=== PATIENT | male | born 1955 | race Caucasian/White ===

== ENCOUNTER → 2018-06-15 | Outpatient (CLI) | payer BC | LOC: M LRY 12:19 | DX: M19.041 Primary osteoarthritis, right hand (principal); M19.042 Primary osteoarthritis, left hand; L40.50 Arthropathic psoriasis, unspecified | CPT/HCPCS: 73130 ==

== ENCOUNTER 2018-08-05 06:40 | Outpatient (CLI) | payer BC ==
[~2018-08-05] VITALS: Ht 172.7 cm; Wt 98.2 kg
[2018-08-05 06:50] VITALS: BP 143/65
[2018-08-05] MEDS ORDERED: diphenhydrAMINE 25MG PO PRIOR TO INFUSION PO ONE (08:00)
[2018-08-05] MEDS ORDERED: inFLIXimab INJECTION 500 MG in NS 200 ML IV ONE (08:00)
[2018-08-05] MEDS ORDERED: NS 1,000 ML IV SCH (08:00)
[2018-08-05] MEDS ORDERED: ACETAMINOPHEN 650MG PO PRIOR TO INFUSION PO ONE (08:00)
[2018-08-05] MEDS ORDERED: FILTER 1.2 MICRON (ADULT TPN/MANNITOL/REMICADE) XX ONE (08:00)
[2018-08-05 08:15] VITALS: BP 110/57
[2018-08-05 08:45] VITALS: BP 117/59
[2018-08-05 09:06] VITALS: BP 104/58
[2018-08-05 09:30] VITALS: BP 116/56
== END 2018-08-05 09:30 | disposition home or self-care (01) ==
LOC: M INFU 06:40
PROVIDERS: ATTEND Internal Medicine Rheumatology
DX: L40.50 Arthropathic psoriasis, unspecified (principal)
CPT/HCPCS: 96413; J1745

== ENCOUNTER → 2018-08-17 | Outpatient (CLI) | payer BC ==
[2018-08-17 18:23] LABS: BASO # 0.1 10^3/uL (0.0-0.2); EOS # 0.3 10^3/uL (0.0-0.50); EOS % 3.6 % (0.0-3.0); HEMATOCRIT 36.9 % (42.0-52.0); LYMPH # 1.3 10^3/uL (1.5-4.5); LYMPH % 17.4 % (24.0-44.0); MEAN CORPUSCULAR HEMOGLOBIN 32.3 pg (27.0-33.0); MEAN CORPUSCULAR HGB CONC 32.5 g/dl (32.0-36.5); MEAN CORPUSCULAR VOLUME 99.5 fl (80.0-96.0); MONO # 0.6 10^3/uL (0.0-0.8); MONO % 8.3 % (0.0-5.0); NEUTROPHILS % 69.1 % (36.0-66.0); PLATELET COUNT, AUTOMATED 245 10^3/uL (150-450); RED BLOOD COUNT 3.71 10^6/uL (4.30-6.10); WHITE BLOOD COUNT 7.2 10^3/uL (4.0-10.0)
[2018-08-17 18:48] LABS: ALBUMIN 4.3 GM/DL (3.2-5.2); ALT/SGPT 32 U/L (12-78); BILIRUBIN,TOTAL 0.4 MG/DL (0.2-1.0); BLOOD UREA NITROGEN 16 MG/DL (7-18); C REACTIVE PROTEIN QUANTITATIV < 0.30 MG/DL (0.00-0.30); CALCIUM LEVEL 9.1 MG/DL (8.8-10.2); CARBON DIOXIDE LEVEL 28 MEQ/L (21-32); CHLORIDE LEVEL 101 MEQ/L (98-107); CREATININE FOR GFR 0.99 MG/DL (0.70-1.30); GLOMERULAR FILTRATION RATE > 60.0 (>49); GLUCOSE, FASTING 163 MG/DL (70-100); POTASSIUM SERUM 4.2 MEQ/L (3.5-5.1); RHEUMATOID FACTOR QUANT < 10.0 IU/ML (<15.0); SODIUM LEVEL 139 MEQ/L (136-145); TOTAL PROTEIN 8.7 GM/DL (6.4-8.2); URIC ACID 3.4 MG/DL (3.5-7.2)
[2018-08-17 19:30] LABS: ERYTHROCYTE SEDIMENTATION RATE 18 mm/hr (0-20)
[2018-08-19 11:02] LABS: HEPATITIS B SURFACE ANTIBODY NEGATIVE (POSITIVE)
[2018-08-19 11:08] LABS: HEPATITIS B SURFACE ANTIGEN NEGATIVE (NEGATIVE)
[2018-08-19 11:37] LABS: HEPATITIS C VIRUS ABY INDEX 0.1 INDEX (<0.8)
[2018-08-20 00:10] LABS: CYCLIC CITRULLINATED PEPTIDE 10 units (0-19); HEPATITIS B CORE ANTIBODY IGG Negative (Negative)
== END ==
LOC: M LAB 16:34
PROVIDERS: ATTEND Internal Medicine Rheumatology
DX: Z51.81 Encounter for therapeutic drug level monitoring (principal); L40.50 Arthropathic psoriasis, unspecified; Z79.899 Other long term (current) drug therapy

== ENCOUNTER 2018-09-30 06:53 | Outpatient (CLI) | payer BC ==
[~2018-09-30] VITALS: Ht 172.7 cm; Wt 98.0 kg
[2018-09-30 07:14] VITALS: BP 142/69
[2018-09-30] MEDS ORDERED: FILTER 1.2 MICRON (ADULT TPN/MANNITOL/REMICADE) XX ONE (07:15)
[2018-09-30] MEDS ORDERED: diphenhydrAMINE 25MG PO PRIOR TO INFUSION PO ONE (07:15)
[2018-09-30] MEDS ORDERED: ACETAMINOPHEN 650MG PO PRIOR TO INFUSION PO ONE (07:15)
[2018-09-30] MEDS ORDERED: NS 1,000 ML IV SCH (07:15)
[2018-09-30] MEDS ORDERED: inFLIXimab INJECTION 500 MG in NS 200 ML IV ONE (07:15)
[2018-09-30 09:36] VITALS: BP 135/66
== END 2018-09-30 09:40 | disposition home or self-care (01) ==
LOC: M INFU 06:53
PROVIDERS: ATTEND Internal Medicine Rheumatology
DX: L40.50 Arthropathic psoriasis, unspecified (principal)
CPT/HCPCS: 96413; 96415; J1745

== ENCOUNTER → 2018-11-16 | Outpatient (REF) | payer MEDICARE ==
[2018-11-16 16:41] LABS: BASO % 0.6 % (0.0-1.0); EOS # 0.3 10^3/uL (0.0-0.50); EOS % 4.7 % (0.0-3.0); HEMATOCRIT 38.1 % (42.0-52.0); HEMOGLOBIN 12.4 g/dl (13.5-17.5); LYMPH % 13.6 % (24.0-44.0); MEAN CORPUSCULAR HEMOGLOBIN 31.7 pg (27.0-33.0); MEAN CORPUSCULAR HGB CONC 32.5 g/dl (32.0-36.5); MEAN CORPUSCULAR VOLUME 97.4 fl (80.0-96.0); MONO # 0.6 10^3/uL (0.0-0.8); MONO % 7.8 % (0.0-5.0); NEUTROPHILS # 5.1 10^3/uL (1.8-7.7); PLATELET COUNT, AUTOMATED 264 10^3/uL (150-450); RED BLOOD COUNT 3.91 10^6/uL (4.30-6.10)
[2018-11-16 16:51] LABS: ALBUMIN 4.2 GM/DL (3.2-5.2); ALT/SGPT 25 U/L (12-78); BILIRUBIN,TOTAL 0.5 MG/DL (0.2-1.0); BLOOD UREA NITROGEN 16 MG/DL (7-18); C REACTIVE PROTEIN QUANTITATIV 1.65 MG/DL (0.00-0.30); CALCIUM LEVEL 9.2 MG/DL (8.8-10.2); CARBON DIOXIDE LEVEL 29 MEQ/L (21-32); CHLORIDE LEVEL 101 MEQ/L (98-107); CREATININE FOR GFR 1.08 MG/DL (0.70-1.30); GLOMERULAR FILTRATION RATE > 60.0 (>49); GLUCOSE, FASTING 224 MG/DL (70-100); POTASSIUM SERUM 4.3 MEQ/L (3.5-5.1); SODIUM LEVEL 135 MEQ/L (136-145); TOTAL PROTEIN 8.5 GM/DL (6.4-8.2)
[2018-11-16 17:13] LABS: ERYTHROCYTE SEDIMENTATION RATE 38 mm/hr (0-20)
== END ==
LOC: M SFHCPLAZ 13:43
PROVIDERS: ATTEND Internal Medicine Rheumatology
DX: L40.50 Arthropathic psoriasis, unspecified (principal)
CPT/HCPCS: 80053; 85025; 85652; 86140; G0463

== ENCOUNTER 2018-11-25 07:30 | Outpatient (CLI) | payer MEDICARE ==
[~2018-11-25] VITALS: Ht 172.7 cm; Wt 98.0 kg
[2018-11-25 07:20] VITALS: BP 140/61
[2018-11-25] MEDS ORDERED: inFLIXimab INJECTION 500 MG in NS 200 ML IV ONE (08:00)
[2018-11-25] MEDS ORDERED: NS 1,000 ML IV SCH (08:00)
[2018-11-25] MEDS ORDERED: diphenhydrAMINE INJ 50MG/ML VIAL (J1200) IV PRN (08:00)
[2018-11-25] MEDS ORDERED: ALBUTEROL SULFATE 2.5 MG/0.5 ML INH NEB SOLN INH PRN (08:00)
[2018-11-25] MEDS ORDERED: EPINEPHrine INJ 1 MG/ML 1ML AMP IM PRN (08:00)
[2018-11-25] MEDS ORDERED: ACETAMINOPHEN 650MG ER TAB (TYLENOL ARTHRITIS) PO ONE (08:00)
[2018-11-25] MEDS ORDERED: methylPREDNISolone INJ 125 MG/2 ML VIAL (J2930) IV PRN (08:00)
[2018-11-25] MEDS ORDERED: FILTER 1.2 MICRON (ADULT TPN/MANNITOL/REMICADE) XX ONE (08:00)
[2018-11-25] MEDS ORDERED: diphenhydrAMINE 25 MG CAP PO ONE (08:00)
[2018-11-25 08:15] VITALS: BP 118/59
[2018-11-25 09:00] VITALS: BP 120/56
[2018-11-25 09:30] VITALS: BP 127/60
== END 2018-11-25 09:30 | disposition home or self-care (01) ==
LOC: M INFU 07:30
PROVIDERS: ATTEND Internal Medicine Rheumatology
DX: L40.50 Arthropathic psoriasis, unspecified (principal)
CPT/HCPCS: 96413; J1745

== ENCOUNTER 2019-01-20 06:55 | Outpatient (CLI) | payer MEDICARE ==
[~2019-01-20] VITALS: Ht 167.6 cm; Wt 98.0 kg
[2019-01-20 07:00] VITALS: BP 128/61
[2019-01-20] MEDS ORDERED: ACETAMINOPHEN 650MG ER TAB (TYLENOL ARTHRITIS) PO ONE (07:00)
[2019-01-20] MEDS ORDERED: diphenhydrAMINE 25 MG CAP PO ONE (07:00)
[2019-01-20] MEDS ORDERED: diphenhydrAMINE INJ 50MG/ML VIAL (J1200) IV PRN (07:00)
[2019-01-20] MEDS ORDERED: FILTER 1.2 MICRON (ADULT TPN/MANNITOL/REMICADE) XX ONE (07:00)
[2019-01-20] MEDS ORDERED: methylPREDNISolone INJ 125 MG/2 ML VIAL (J2930) IV PRN (07:00)
[2019-01-20] MEDS ORDERED: ALBUTEROL SULFATE 2.5 MG/0.5 ML INH NEB SOLN INH PRN (07:00)
[2019-01-20] MEDS ORDERED: EPINEPHrine INJ 1 MG/ML 1ML AMP IM PRN (07:00)
[2019-01-20] MEDS ORDERED: NS 1,000 ML IV SCH (07:00)
[2019-01-20 07:45] VITALS: BP 114/60
[2019-01-20] MEDS ORDERED: inFLIXimab INJECTION 500 MG in NS 200 ML IV ONE (08:00)
[2019-01-20 08:32] VITALS: BP_SYST 113; BP_SYST 114; BP_DIAS 60
[2019-01-20 08:45] VITALS: BP 126/58
== END 2019-01-20 08:45 | disposition home or self-care (01) ==
LOC: M INFU 06:55
PROVIDERS: ATTEND Internal Medicine Rheumatology
DX: L40.50 Arthropathic psoriasis, unspecified (principal)
CPT/HCPCS: 96413; J1745